=== PATIENT | male | born 1955 | race Caucasian/White ===

== ENCOUNTER → 2020-05-27 13:23 | Outpatient (CLI) | payer MEDICARE, SELFPAY ==
[2020-05-27 14:29] LABS: Basophils # 0.1 K/mm3 (0-0.2); Basophils % 0.9 % (0.1-2.0); Eosinophils # 0.3 K/mm3 (0.0-0.4); Eosinophils % 3.4 % (0.1-12.0); Hematocrit 46.3 % (42.0-52.0); Hemoglobin 15.7 g/dL (14.1-18.0); Lymphocytes # 1.9 K/mm3 (0.7-4.5); Lymphocytes % 25.3 % (10-50); Mean Corpuscular HGB Conc 33.8 g/dL (31.8-35.4); Mean Corpuscular Hemoglobin 28.5 pg (27.0-31.2); Mean Corpuscular Volume 84.3 fl (80-94); Mean Platelet Volume 7.5 fl (7.4-10.4); Monocytes # 0.4 K/mm3 (0.1-1.0); Monocytes % 4.9 % (1.7-9.3); Neutrophils % 65.5 % (37.0-80.0); Platelet Count 236 K/mm3 (142-424); Red Cell Distribution Width 13.9 % (11.5-17.5); White Blood Count 7.7 K/mm3 (4.8-10.8)
[2020-05-27 14:51] LABS: Chloride 102 mmol/L (98-107); Potassium 4.4 mmoL/L (3.5-5.1); Sodium 141 mmol/L (136-145)
[2020-05-27 14:54] LABS: Anion Gap 11.4 mEq/L (5-15); Blood Urea Nitrogen 10 mg/dl (9-20); Calcium 9.6 mg/dl (8.4-10.2); Carbon Dioxide 32 mmol/L (22.0-30.0); Estimated Glomerular Filt Rate 61 ml/min (>60); GFR (African American) 74 ML/MIN (>60); Glucose 94 mg/dl (74-100)
[2020-05-27 15:11] LABS: Coronavirus 19 IgG Antibody Positive (Negative); Coronavirus 19 IgM Antibody Negative (Negative)
== END ==
PROVIDERS: Visit Provider Urology
DX: Z01.818 Encounter for other preprocedural examination; Z20.822 Contact with and (suspected) exposure to COVID-19; R06.02 Shortness of breath; I70.213 Atherosclerosis of native arteries of extremities with intermittent claudication, bilateral legs; R60.0 Localized edema; Z72.0 Tobacco use
CPT/HCPCS: 36415; 80048; 85025; 86328

== ENCOUNTER 2020-05-29 08:57 | Day surgery (SDC) | payer MEDICARE, SELFPAY ==
[2020-05-29] VITALS (13 sets, daily range): BP systolic 109–157; BP diastolic 60–74; PULSE 65–79; RESP 12–18; O2SAT 95–99; BMI 28.3
--- NOTE | 2020-05-29 07:18 | IR_ITS ---
APPROVED REPORT Patient Location: Outpatient PROCEDURES Right radial arterial access Catheter placement in the left common iliac artery Selective left common iliac artery antegrade angiogram Catheter placement in the right external iliac artery Selective right external iliac artery antegrade angiogram Stent deployment to the right external iliac artery Catheter placement in the distal abdominal aorta Distal abdominal aortogram INDICATION Peripheral artery disease, [place] claudication class III, History of femorofemoral surgery, Right external iliac artery atherosclerotic plaque Informed consent was obtained prior to the procedure. COMPLICATIONS None Estimated Blood Loss: Less than 10 mls TECHNIQUE 1% lidocaine used anesthetize the right anterior aspect of the wrist. The right radial artery was accessed via the Salinger technique and a 6 Cook Islander hydrophilic sheath was placed in the right radial artery. Heparin verapamil and nitroglycerin were administered intra-arterially. A ANTUNEZ catheter was used to cannulate and accessed the transverse aorta and passed the wire into the descending aorta. Once the wire was in the descending aorta a PV multi curve was placed in the right external iliac artery and angiography was performed. The catheter was placed in the left common iliac artery and left common iliac artery angiography was performed. The catheter was placed back into the right common and external iliac artery and therapeutic heparin was administered giving a therapeutic ACT. A long advantage wire was used to traverse the stenosis in the right external iliac artery. The apparatus was removed with the wire in place and the sheath was removed with replacement of a 110 cm hydrophilic 6 [place] Islander sheath which landed into the right distal common iliac artery. An 8 mm x 37 mm EV 3 balloon mounted stent was deployed at 10 meme reducing the severe stenosis to 0%. Repeat angiography revealed wide patency with excellent inline flow to the right common femoral artery. Following this the catheter was pulled back to the distal abdominal aorta and distal abdominal aortography was performed. After achieving excellent angiographic results the apparatus was removed the sheath was removed and hemostasis was achieved using TR banding patient was transferred to the postop holding her stable condition ANGIOGRAPHIC RESULTS The distal abdominal aorta is calcified yet widely patent The left common iliac artery is proximally occluded The right common iliac artery has a stent in the proximal segment which is widely patent free of in-stent restenosis with excellent proximal distal transitioning. The right internal iliac artery is widely patent. The right external iliac artery has a 6 concentric 80% stenosis. The right common femoral artery is patent however at the junction of the femorofemoral graft and eccentric high-grade calcified stenosis is identified. The proximal right SFA is patent in the proximal segment however the mid and distal segment was not visualized. The right profunda femoris artery is widely patent The femorofemoral graft is widely patent IMPRESSION Peripheral artery disease as described above Successful stenting of the right external iliac artery severe disease reduced to 0% with 1 balloon mounted stent. This provided increased inflow to the both the right leg as well as the left leg given the femorofemoral graft Chronically occluded left common iliac artery Persistent severe eccentric calcified stenosis at the junction of the femorofemoral graft in the right common femoral artery PLAN 1. Dual antiplatelet therapy for 1 month and then can consider switching to Xarelto 2.5 twice daily plus asp
--- NOTE | 2020-05-29 09:02 | CA_ITS ---
APPROVED REPORT EXAM: Comprehensive 2D, Doppler, and color-flow Echocardiogram Instructional Support Services Director: Georgia Eddy RVT Ht: 5 ft 5 in Wt: 173lbs BSA: 1.86 BP: 132/68 mmHg Indications: SOA,CAD,SMOKER,EDEMA TDS-OVERLAYING LUNG 2D Dimensions LVOT 2.18 cm (M/F) 1.5-2.5 LA Volume 13.70 mL LA Volume Index 7.36 mL/m2 (M/F) 16-34 M-Mode Dimensions RVDd 2.36 cm (0.9-2.6) LA Diam 3.26 cm (1.9-4.0) LVDd 4.80 cm (3.5-5.7) Ao Diam 3.37 cm (2.0-3.7) LVDs 3.01 cm (3.5-5.7) IVSd 0.93 cm (0.6-1.1) PWd 0.61 cm (0.6-1.1) EF (Teich) 67.20% FS 37.30% EDV (Teich) 107.50 mL ESV (Teich) 35.30 mL LV Diastology E Decel Time 213.00 (160-240 msec) E/A Ratio 0.9 MED E' 7.20 (< 7 cm/sec) E'/MED E' Ratio 11.57 (>14) LAT E' 8.30 (<10 cm/sec) E/LAT E' Ratio 10.04 (>14) Mitral Valve MV E Max Aguila. 83.00 (40-130 cm/s) MV A Velocity 93.00 (40-130 cm/s) E/A Ratio 0.90 MV Decel. Time 213.00 (160-240 ms) MV PHT 62.00 ms Pulmonary Valve PV Peak Velocity 70.00 (50-150 cm/s) Left Ventricle Left atrium is mildly enlarged, left ventricle is normal size, there is mild concentric left ventricular hypertrophy, visually estimated ejection fraction 55% with no regional wall motion abnormality, grade 1 diastolic dysfunction seen without tissue Doppler evidence of raise left atrial pressure. Right Ventricle Right atrium and right ventricle are normal size and contractility. Aortic Valve Aortic valve is minimally thickened and fibrosed there is no aortic stenosis or aortic insufficiency. Mitral Valve Mitral valve is grossly normal, there is trace mitral regurgitation. Tricuspid Valve Tricuspid valve grossly normal, there is trace tricuspid regurgitation, tricuspid regurgitation jet velocity is inadequate for calculation of the right ventricular systolic pressure. Pulmonic Valve Pulmonic valve is poorly visualized. Great Vessels Aortic root is normal size. Pericardium No significant pericardial effusion noted. Conclusion 1. Normal left ventricular size, mild concentric left ventricular hypertrophy, visually estimated ejection fraction 55% with no regional wall motion abnormality, grade 1 diastolic dysfunction seen without tissue Doppler evidence of raise left atrial pressure. 2. Trace mitral and tricuspid regurgitation. 3. No significant pericardial effusion noted. Electronically signed by : Chi Brantley, 05/29/2020 16:57:22
[2020-05-29 12:10] LABS: CATHL Activated Clotting Time > 400 SEC (74-125)
--- NOTE | 2020-05-29 13:44 | HMH.PHACLD ---
Moshe West has received discharge medication counseling on the following medications: CONTINUED MEDICATIONS: PLAVIX, ASPIRIN NEW MEDICATIONS: LIPITOR ED/ARB AND BB NOT INDICATED FOR PERIPHERAL STENT
== END 2020-05-29 13:58 | disposition home or self-care (01) ==
LOC: CATHLAB 08:57
PROVIDERS: PCP Emergency Medicine; Visit Provider Internal Medicine
DX: I70.293 Other atherosclerosis of native arteries of extremities, bilateral legs (principal); I70.213 Atherosclerosis of native arteries of extremities with intermittent claudication, bilateral legs; R60.0 Localized edema; Z72.0 Tobacco use; I77.1 Stricture of artery; Z82.49 Family history of ischemic heart disease and other diseases of the circulatory system; Z95.820 Peripheral vascular angioplasty status with implants and grafts; I25.10 Atherosclerotic heart disease of native coronary artery without angina pectoris
CPT/HCPCS: 36247; 37221; 75710; 85347; 93306; 99152; 99153; C1725; C1769; C1876; J1644; Q9966

== ENCOUNTER → 2022-06-07 17:58 | Outpatient (CLI) | payer MEDICARE, SELFPAY ==
[2022-06-07 18:28] LABS: Alanine Aminotransferase 15 U/L (12-78); Albumin/Globulin Ratio 1.7 (1.1-1.8); Alkaline Phosphatase 124 U/L (38-126); Anion Gap 10.1 mEq/L (5-15); Aspartate Amino Transferase 23 U/L (17-59); Bilirubin,Total 0.5 mg/dl (0.2-1.3); Blood Urea Nitrogen 10 mg/dl (9-20); Calcium 8.8 mg/dl (8.4-10.2); Carbon Dioxide 31 mmol/L (22.0-30.0); Chloride 96 mmol/L (98-107); Chol/HDL Ratio 5.5 (1-3.5); Cholesterol 149 mg/dl (140-200); Estimated Glomerular Filt Rate 75 ml/min (>60); GFR (African American) 90 ML/MIN (>60); Globulin 2.4 g/dL (1.3-3.2); Glucose 82 mg/dl (74-100); HDL Cholesterol 27 mg/dl (40-60); Potassium 4.1 mmoL/L (3.5-5.1); Sodium 133 mmol/L (136-145); Total Protein,Serum 6.4 g/dl (6.3-8.2); Triglycerides 162 mg/dl (30-150); VLDL Cholesterol 32 mg/dL (0-40)
[2022-06-07 18:49] LABS: Basophils # 0.1 K/mm3 (0-0.2); Basophils % 0.8 % (0.1-2.0); Eosinophils # 0.2 K/mm3 (0.0-0.4); Eosinophils % 2.7 % (0.1-12.0); Hematocrit 44.2 % (42.0-52.0); Hemoglobin 14.1 g/dL (14.1-18.0); Lymphocytes # 2.2 K/mm3 (0.7-4.5); Lymphocytes % 26.5 % (10-50); Mean Corpuscular HGB Conc 31.9 g/dL (31.8-35.4); Mean Corpuscular Hemoglobin 26.4 pg (27.0-31.2); Mean Corpuscular Volume 82.8 fl (80-94); Mean Platelet Volume 7.4 fl (7.4-10.4); Monocytes # 0.5 K/mm3 (0.1-1.0); Monocytes % 6.1 % (1.7-9.3); Neutrophils # 5.3 K/mm3 (1.8-7.8); Neutrophils % 63.9 % (37.0-80.0); Platelet Count 245 K/mm3 (142-424); Red Blood Count 5.34 M/mm3 (4.60-6.20); Red Cell Distribution Width 15.4 % (11.5-17.5); White Blood Count 8.2 K/mm3 (4.8-10.8)
[2022-06-07 19:01] LABS: Prostate Specific Ag Screen 1.6 ng/ml (0.0-4.0)
== END ==
PROVIDERS: PCP Family Medicine; Visit Provider Family Medicine
DX: I73.9 Peripheral vascular disease, unspecified (principal); Z12.5 Encounter for screening for malignant neoplasm of prostate; E78.2 Mixed hyperlipidemia; Q24.5 Malformation of coronary vessels
CPT/HCPCS: 80053; 80061; 85025; G0103

== ENCOUNTER → 2022-07-14 07:51 | Outpatient (CLI) | payer MEDICARE, SELFPAY ==
--- NOTE | 2022-07-14 07:52 | CT_ITS ---
FINAL REPORT CLINICAL HISTORY: lung cancer screening, 1 ppd x 54 years FINDINGS: CT CHEST LOW DOSE SCREENING HISTORY: Screening exam for lung cancer. Current smoker, 54 pack year smoking history DOSE: CTDIvol: 2.90 mGy, DLP: 9847 mGy*cm COMPARISON: None . TECHNIQUE: Axial CT without IV contrast administration using low dose protocol FINDINGS: No acute lung disease is present . No pulmonary lesions are seen suspicious for neoplasm. There is evidence of old calcified granulomatous disease. A few patchy groundglass opacities are noted favored to be scarring or inflammatory nature. Chronic interstitial changes are seen. Bronchial wall thickening is present. No pleural or pericardial effusion is seen . No adenopathy or mass lesion is present . Numerous subcutaneous lesions are seen of the back. Small hiatal hernia is present with evidence of reflux disease. IMPRESSION: 1. No evidence of lung cancer 2. Nonspecific patchy groundglass opacities bilaterally in a symmetric fashion which could be due to chronic change or bronchopneumonia LUNG RADS CATEGORY 1 S, significant RECOMMENDATION: 12 month LDCT follow up Authenticated and ERN
== END ==
PROVIDERS: PCP Family Medicine; Visit Provider Family Medicine
DX: Z87.891 Personal history of nicotine dependence (principal); Z12.2 Encounter for screening for malignant neoplasm of respiratory organs
CPT/HCPCS: 71271

== ENCOUNTER → 2022-12-03 13:31 | Outpatient (CLI) | payer MEDICARE, SELFPAY | PROVIDERS: PCP Family Medicine; Visit Provider Family Medicine | DX: L98.9 Disorder of the skin and subcutaneous tissue, unspecified (principal) ==

== ENCOUNTER → 2023-03-04 13:28 | Outpatient (CLI) | payer MEDICARE, SELFPAY ==
--- NOTE | 2023-03-04 13:37 | XR_ITS ---
FINAL REPORT CLINICAL HISTORY: pneumonia, right basilar rales, diminished left ba FINDINGS: TWO-VIEW CHEST The heart size is normal. The mediastinum is normal. There are chronic changes in the infrahilar regions bilaterally. There is no pneumothorax. IMPRESSION: No acute cardiopulmonary process. Reviewed, Interpreted and Dictated by Danny Bloom MD Transcribed by Erin Murillo Authenticated and . [facility] [place]
== END ==
LOC: RAD 13:29
PROVIDERS: PCP Family Medicine; Visit Provider Nurse Practitioner
DX: J18.9 Pneumonia, unspecified organism (principal); J44.1 Chronic obstructive pulmonary disease with (acute) exacerbation
CPT/HCPCS: 71046

== ENCOUNTER 2023-12-08 10:49 | Day surgery (SDC) | payer MEDICARE, SELFPAY ==
[2023-12-08] VITALS (10 sets, daily range): BP systolic 107–149; BP diastolic 59–100; PULSE 55–73; RESP 18–20; O2SAT 94–100; BMI 27.6
--- NOTE | 2023-12-08 07:19 | IR_ITS ---
APPROVED REPORT Patient Location: Outpatient PROCEDURES Right radial arterial access Catheter placement in the right external iliac artery with unilateral runoff to the right foot Catheter placed in the distal abdominal aorta Distal abdominal aortogram Bare-metal stent deployment to the ostium of the right common iliac artery Intravascular lithotripsy to the right common femoral artery Intravascular lithotripsy to the right profunda femoris INDICATION Peripheral artery disease, Occluded left common and external iliac artery, History of femorofemoral bypass, [place] claudication class III right leg, Extensive calcification of the right common femoral artery, Extensive calcification of the right profunda femoris artery, Abnormal RAMON, Informed consent was obtained prior to the procedure. COMPLICATIONS none Estimated Blood Loss: less than 10ml TECHNIQUE 1% lidocaine used to anesthetize the right anterior aspect of the right wrist. The right radial artery was accessed via the central technique and an arterial cocktail using 5000U heparin, 2.5 mg verapamil, 1mg lidocaine and 800mcg nitroglycerin into the right radial sheath intra-arterially. A PV multi curve catheter was then placed into the right common iliac artery and then advanced into the right external iliac artery where antegrade angiography with unilateral runoff to the right foot was performed. Following this the catheter was pulled back to the distal abdominal aorta were distal abdominal aortography was performed. The 6 Cypriot sheath was then exchanged for a hydrophilic 119 cm 6 Cypriot sheath. Under fluoroscopic guidance the sheath was advanced to the distal abdominal aorta. Therapeutic heparin was administered giving a therapeutic ACT and a 300 cm Choice PT extra-support wire was placed in the right external iliac artery. An 8 mm x 37 mm balloon mounted bare-metal stent was deployed initially at 14 meme the balloon was brought back and then deployed at 16 meme to post dilate. Repeat angiography demonstrated severe calcification at the anastomosis of the right common femoral artery and the femorofemoral graft. This calcification extended into a large profunda femoris artery while the right superficial femoral artery was proximally occluded. At this point a 6 mm x 40 mm intravascular lithotripsy balloon was advanced into the right common femoral artery straddling the femorofemoral graft and extending into the proximal profunda femoris artery. The balloon was deployed at 4 and then 6 meme and a total of 300 intravascular lithotripsy shockwaves were administered. Excellent angiograph results were obtained at the end the procedure the apparatus was removed the sheath was removed and hemostasis was achieved using TR banding patient was transferred to the postop putting in stable addition ANGIOGRAPHIC RESULTS Distal abdominal aorta is patent. Left common iliac artery is proximally occluded and does not reconstitute until the common femoral artery from the femorofemoral graft. The right common iliac artery has an ostial 50% stenosis which creates a 40 mm Means stenotic gradient. Following the stenosis there is a stent in the proximal to mid common iliac artery which is widely patent. There is then a gap of normal blood vessel followed by an additional stent which has mild to moderate concentric in-stent restenosis. The right common femoral artery is widely patent. There is evidence of a femorofemoral graft which is anastomosed had a heavily calcified severely stenotic right common femoral artery which extends toward the right profunda femoris. The right superficial femoral artery is proximally occluded. There is reconstitution at the right popliteal artery at Randy's canal through dense collateralization from the large profunda femoris artery. The right popliteal artery is then occluded at the pregeniculate level and then sends dense collaterals distally where the posterior tibialis artery reconstitutes at mid calf and then supplies the right foot. Motion artifact limited evaluation of the right anterior tibialis artery The left lower extremity was not angiographically evaluated however the femorofemoral graft was patent IMPRESSION Chronically occluded left common internal and external iliac artery Severe stenosis in the ostial segment of the right common iliac artery producing a 40 mm Means stenotic gradient which was successfully stented with 1 bare-metal balloon mounted stent reducing the lesion to 0% Severe calcification of the right common femoral artery preceding a large profunda femoris artery Chronically occluded right superficial femoral artery Short segment of patent right popliteal artery supplied by collaterals from the profunda femoris artery which then is abruptly occluded and then sends pregeniculate collaterals into the right posterior tibialis artery and peroneal artery with two-vessel runoff into the right foot Successful intravascular lithotripsy to the right common femoral artery extending into the right profunda femoris artery PLAN 1. Dual antiplatelet therapy is reasonable however long-term patient should be on Xarelto 2.5 twice daily and aspirin 81 mg daily 2. LDL less than 55 to achieve that high intensity statin 3. Avoidance of tobacco products 4. Risk factor modification 5. Physical therapy and peripheral artery disease rehabilitation Electronically signed by : Reji Carlos MD 12/08/2023 14:21:18
[2023-12-08 11:13] LABS: Basophils # 0.1 K/mm3 (0-0.2); Basophils % 0.6 % (0.1-2.0); Eosinophils # 0.2 K/mm3 (0.0-0.4); Eosinophils % 2.5 % (0.1-12.0); Hematocrit 40.8 % (42.0-52.0); Hemoglobin 13.4 g/dL (14.1-18.0); Lymphocytes # 1.8 K/mm3 (0.7-4.5); Lymphocytes % 19.6 % (10-50); Mean Corpuscular HGB Conc 32.8 g/dL (31.8-35.4); Mean Corpuscular Volume 82.4 fl (80-94); Mean Platelet Volume 7.1 fl (7.4-10.4); Monocytes # 0.4 K/mm3 (0.1-1.0); Monocytes % 4.3 % (1.7-9.3); Neutrophils # 6.7 K/mm3 (1.8-7.8); Neutrophils % 72.9 % (37.0-80.0); Platelet Count 213 K/mm3 (142-424); Red Blood Count 4.96 M/mm3 (4.60-6.20); Red Cell Distribution Width 16.9 % (11.5-17.5); White Blood Count 9.2 K/mm3 (4.8-10.8)
[2023-12-08 11:29] LABS: Chloride 91 mmol/L (98-107); Sodium 131 mmol/L (136-145)
[2023-12-08 11:32] LABS: Anion Gap 8.9 mEq/L (5-15); Blood Urea Nitrogen 7 mg/dl (9-20); Calcium 9.4 mg/dl (8.4-10.2); Carbon Dioxide 34 mmol/L (22.0-30.0); Creatinine Clearance Estimated 68 mL/min (50-200); Estimated Glomerular Filt Rate 67 ml/min (>60); GFR (African American) 81 ML/MIN (>60); Glucose 100 mg/dl (74-100)
[2023-12-08 11:34] LABS: Potassium 2.9 mmoL/L (3.5-5.1)
[2023-12-08] MEDS: HEPARIN 1,000 UNITS/ML 10ML VIAL (CATH LAB) 10000 UNIT IV ×2 (11:43→12:39)
[2023-12-08] MEDS: VERAPAMIL 2.5MG/ML 2ML VIAL 2.5 MG IV (11:43)
[2023-12-08] MEDS: LIDOCAINE 1% 10ML MDV 20 ML IJ (11:43)
[2023-12-08] MEDS: diphenhydrAMINE 50MG/ML VIAL 50 MG IV (11:43)
[2023-12-08] MEDS: 0.9 % SODIUM CHLORIDE 500 ML 25 ML IV (11:44)
[2023-12-08] MEDS: HEPARIN 1,000 UNITS/500ML NS (CATH LAB) 3000 UNIT IV (11:45)
[2023-12-08] MEDS: NITROGLYCERIN 800MCG/8ML SYR (CATH LAB) 800 MCG IA (11:45)
[2023-12-08] MEDS: MIDAZOLAM HCL 1MG/1ML 5ML VIAL 1 MG IV (12:39)
[2023-12-08] MEDS: FENTANYL 100MCG/2ML VIAL 50 MCG IV (12:39)
[2023-12-08] MEDS: PROPOFOL 10MG/ML 20ML VIAL 100 MG IV (13:00)
[2023-12-08] MEDS: POTASSIUM CHLORIDE 20MEQ TAB 40 MEQ PO (14:18)
[2023-12-08 14:33] LABS: CATHL Activated Clotting Time > 400 SEC (74-125)
[2023-12-08] MEDS: IOHEXOL-240 100ML BOTTLE 230 ML IV (16:04)
[2023-12-08 16:08] LABS: CATHL Activated Clotting Time > 400 SEC (74-125)
== END 2023-12-08 15:44 | disposition home or self-care (01) ==
PROVIDERS: PCP Family Medicine; Visit Provider Internal Medicine
DX: I70.201 Unspecified atherosclerosis of native arteries of extremities, right leg (principal); Q24.5 Malformation of coronary vessels; R53.83 Other fatigue; I10 Essential (primary) hypertension; F17.210 Nicotine dependence, cigarettes, uncomplicated; I77.1 Stricture of artery; I73.9 Peripheral vascular disease, unspecified; Z95.828 Presence of other vascular implants and grafts
CPT/HCPCS: 80048; 85025; 85347; 99152; 99153; C1725; C1769; C1876; C9765; J1200; J1644; J2250; J3010; Q9966

== ENCOUNTER 2024-12-28 10:33 | Outpatient (CLI) | payer MEDICARE, SELFPAY ==
[2024-12-28 20:47] LABS: Hematocrit 39.5 % (42.0-52.0); Hemoglobin 12.7 g/dL (14.1-18.0); Immature Granulocytes % 0.4 %; Mean Corpuscular HGB Conc 32.2 g/dL (31.8-35.4); Mean Corpuscular Hemoglobin 25.6 pg (27.0-31.2); Mean Corpuscular Volume 79.5 fl (80-94); Nucleated Red Blood Cells % 0 %; Platelet Count 224 K/mm3 (142-424); Red Blood Count 4.97 M/mm3 (4.60-6.20); Red Cell Distribution Width-SD 45.0 fL; White Blood Count 9.2 K/mm3 (4.8-10.8)
[2024-12-28 21:40] LABS: Alanine Aminotransferase 16 U/L (12-78); Albumin Level 3.8 g/dl (3.5-5.0); Albumin/Globulin Ratio 1.3 (1.1-1.8); Alkaline Phosphatase 183 U/L (38-126); Anion Gap 11.4 mEq/L (5-15); Aspartate Amino Transferase 19 U/L (17-59); Bilirubin,Total 0.7 mg/dl (0.2-1.3); Blood Urea Nitrogen 8 mg/dl (9-20); Calcium 9.1 mg/dl (8.4-10.2); Carbon Dioxide 29 mmol/L (22.0-30.0); Chloride 98 mmol/L (98-107); Cholesterol 90 mg/dl (140-200); Creatinine,Serum 1.10 mg/dl (0.66-1.25); Estimated Glomerular Filt Rate 66 ml/min (>60); GFR (African American) 80 ML/MIN (>60); Globulin 3.0 g/dL (1.3-3.2); Glucose 89 mg/dl (74-100); Potassium 4.4 mmoL/L (3.5-5.1); Sodium 134 mmol/L (136-145); Total Protein,Serum 6.8 g/dl (6.3-8.2); Triglycerides 98 mg/dl (30-150)
[2024-12-28 22:23] LABS: HDL Cholesterol 27 mg/dl (40-60)
[2024-12-28 22:31] LABS: Hepatitis C Ab Qual. W/ RFX NEGATIVE (Negative)
--- OUTSIDE RECORDS SUMMARY | 2024-12-31 10:45 | XMS_ITS | Clinical Summary ---
Author Organization [facility] Address [address] [place] [address] Care Team Providers Care Production Painter Name Role Phone Pau Manuel MD Primary Care Provider [phone] Allergies No known active allergies Medications HYDROcodone-acet aminophen (NORCO) 5-325 MG per tablet Take 1 tablet by mouth 3 (Three) Times a Day. Active aspirin EC 325 MG EC tablet Take 1 tablet by mouth Daily. 90 tablet 3 08/28/2017 Active clopidogrel (PLAVIX) 75 MG tablet Take 1 tablet by mouth Daily. 30 tablet 3 08/28/2017 Active nicotine (NICODERM CQ) 21 MG/24HR patch Place 1 patch on the skin Daily. 14 patch 08/28/2017 Active Active Problems Problem Noted Date Diagnosed Date Peripheral arterial disease 08/23/2017 Overview (08/23/2017): Added automatically from request for surgery [id number] Tobacco abuse 08/23/2017 Resolved Problems Problem Noted Date Diagnosed Date Resolved Date Arterial insufficiency of lower extremity 08/23/2017 08/28/2017 Overview (08/24/2017): Added automatically from request for surgery [id number] Family History Medical History Relation Name Comments Peripheral vascular disease Father Diabetes Mother Relation Name Status Comments Father Mother Alive Social History Tobacco Use Types Packs/Day Years Used Date Smoking Tobacco: Every Day Cigarettes 0.3 48 Smokeless Tobacco: Never Comments:Currently 1 Cigaret te Daily, as much as 3 PPD at one time Alcohol Use Standard Drinks/Week Comments No 0 (1 standard drink = 0.6 oz pur e alcohol) Abuse Screen Answer Date Recorded Unsafe at Home or Work/School Not on file Feels Threatened by Someone? Not on file 02/2023 Does Anyone Keep You from Co ntacting Others or Doint Things Outside the Home? Not on file 12/16/2022 Physical Sign of Abuse Present Not on file 1 Housing Stability Answer Date Recorded Current Living Arrangements Not on file 12/05 Potentially Unsafe Housing Conditions Not on reyes e 12/16/2022 Family and Community Support Answer Glenn e Recorded Help with Day-to-Day Activities Not on file 12/16/2022 Lonely or Isolated Not on file 12/16/2022 Employment Answer Date Recorded Do you want help finding or keeping work or a anjel b? Not on file 12/16/2022 Disabilities Answer Date Recorded Concentrating, Remembering, or Making Decisions Difficulty Not on file 12/16/2022 Doing Errands Independently Difficulty Not on fi le 12/16/2022 Education Answer Date Recorded Help with school or training? 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 Not on file Not on file Last Filed Vital Signs Vital Sign Reading Time Taken Comments Blood Pressure 142/70 11/21/2017 9:44 AM EDT Pulse 78 11/21/2017 9:44 AM EDT Temperature 36.7 C (98 F) 11/21/2017 9:44 AM EDT Respiratory Rate 18 08/28/2017 4:20 AM EDT Oxygen Saturation 98% 11/21/2017 9:44 AM EDT Inhaled Oxygen Concentration - - Weight 73.9 kg (163 lb) 11/21/2017 9:44 AM EDT Height 165.1 cm (5' 5 ) 11/21/2017 9:44 AM EDT Body Mass Index 27.12 11/21/2017 9:44 AM EDT Plan of Treatment Health Maintenance Due Date Last Done Comments TDAP/TD VACCINES (1 - Tdap) 1974 COLOGUARD 2000 COLON CANCER SCREENING 5 YEAR SIGMOIDOSCOPY 2000 COLONOSCOPY [address] S[address]ENING [address] COLONOGRAPHY 2000 FECAL OCCULT BLOOD TEST 2000 FIT Testing (1 year) 2000 Pneumococcal Vaccine 50+ (1 of 1 - PCV) 2005 ZOSTER VACCINE (1 of 2) 2005 ANNUAL PHYSICAL 09/12/2017 HEPATITIS C SCREENING 09/12/2017 INFLUENZA VACCINE 10/05/2024 COVID-19 Vaccine ( season) 2024 AAA SCREEN ONCE Completed 11/25/2017 Medical Devices Implanted Type Area Metal Flow Coordinator Device Identifier Shelf Expiration Date Model / Serial / Lot Grhang Vasc Propat Thnstrch [id number] - [id number] Implanted:Qty: 1 on 08/25/2017 by Cristhian Mandujano MD at [facility] Implant Right: Groin [employer] 04/24/2021 [id number] / / Stent Beau Visipro .035 7f 37mm 80cm - [id number] Implanted:Qty: 1 on 08/24/2017 by Cristhian Mandujano MD at [facility] Stent EV3 A [employer] [id number] / / Procedures Procedure Name Priority Date/Time Associated Diagnosis Comments CT ANGIO ABDOMINAL AORTA BILAT ILIOFEM RUNOFF Routine 11/25/2017 1:23 PM EDT PAD (peripheral artery disease) from Last 3 Months or Most Recently Relevant to Health Maintenance Results * CT Angio Abdominal Aorta Bilateral Iliofem Runoff With & Without Contrast (11/25/2017 1:23 PM EDT) Anatomical Region Laterality Modality Vascular, Chest, Abdomen N/A Compute d Tomography 11/25/2017 4:10 PM EDT Impressions 11/25/2017 4:16 PM EDT 1. Patent fem-fem bypass. Patent right common iliac stent. Severe narrowing right external iliac artery. 2. Severe bilateral SFA atherosclerosis with spurious occlusion along the vessels. 3. Three-vessel runoff to the feet. E: 11/25/2017 This report was finalized on 11/25/2017 4:16 PM by Everett Dunbar. Narrative 11/25/2017 4:16 PM EDT EXAMINATION: CT ANGIO ABDOMINAL AORTA AND BILATERAL ILIOFEMORAL RUNOFF W WO CONTRAST-11/25/2017: INDICATION: PAD; I73.9-Peripheral vascular disease, unspecified. TECHNIQUE: Axial CT data of the abdomen, pelvis and the lower extremities were acquired helically before and following IV contrast per CTA with runoff protocol. MPR, MIP and 3-D volume rendered images were generated and reviewed. The radiation dose reduction device was turned on for each scan per the ALARA (As Low as Reasonably Achievable) protocol. COMPARISONS: Catheter aortogram with bilateral lower extremity runoff 08/24/2017. FINDINGS: Vascular: AORTA AND VISCERAL BRANCHES: Irregular atherosclerosis of the patent aorta; aorta is normal in caliber. No evidence of dissection or aneurysmal dilatation. Celiac axis is patent. Variant hepatic arterial supply with the left hepatic artery replaced to the left gastric. Patent but mildly narrowed SMA. Single main right renal artery; its origin is actually inferior to the KELLY takeoff; KELLY patent. There is an accessory right renal artery arising from the right common iliac artery just prior to its bifurcation. Patent single left renal artery. RIGHT LOWER EXTREMITY: Patent common iliac artery with stent in place. Patent internal iliac artery. Severe narrowing with near occlusion of the proximal right external iliac artery. Severe narrowing of the distal common femoral artery. Patent fem-fem bypass. The right superficial femoral artery is mostly occluded but there are small muscular collaterals reconstituting the popliteal. There is good perfusion of the right foot with 3-vessel runoff identified. LEFT LOWER EXTREMITY: Left common and external iliac arteries are occluded as is the common femoral artery. The common femoral artery is reconstituted by the fem-fem bypass just proximal to its bifurcation. The [place] femoral artery is essentially occluded in its entirety. Bi-geniculate collaterals reconstitute the popliteal and there is 3-vessel runoff to the left foot. Nonvascular: Calcified granuloma middle lobe. Cholelithiasis. Ptotic malrotated right kidney. Procedure Note Everett Dunbar MD - 11/25/2017 EXAMINATION: CT ANGIO ABDOMINAL AORTA AND BILATERAL ILIOFEMORAL RUNOFF W WO CONTRAST-11/25/2017: INDICATION: PAD; I73.9-Peripheral vascular disease, unspecified. TECHNIQUE: Axial CT data of the abdomen, pelvis and the lower extremities were acquired helically before and following IV contrast per CTA with runoff protocol. MPR, MIP and 3-D volume rendered images were generated and reviewed. The radiation dose reduction device was turned on for each scan per the ALARA (As Low as Reasonably Achievable) protocol. COMPARISONS: Catheter aortogram with bilateral lower extremity runoff 08/24/2017. FINDINGS: Vascular: AORTA AND VISCERAL BRANCHES: Irregular atherosclerosis of the patent aorta; aorta is normal in caliber. No evidence of dissection or aneurysmal dilatation. Celiac axis is patent. Variant hepatic arterial supply with the left hepatic artery replaced to the left gastric. Patent but mildly narrowed SMA. Single main right renal artery; its origin is actually inferior to the KELLY takeoff; KELLY patent. There is an accessory right renal artery arising from the right common iliac artery just prior to its bifurcation. Patent single left renal artery. RIGHT LOWER EXTREMITY: Patent common iliac artery with stent in place. Patent internal iliac artery. Severe narrowing with near occlusion of the proximal right external iliac artery. Severe narrowing of the distal common femoral artery. Patent fem-fem bypass. The right superficial femoral artery is mostly occluded but there are small muscular collaterals reconstituting the popliteal. There is good perfusion of the right foot with 3-vessel runoff identified. LEFT LOWER EXTREMITY: Left common and external iliac arteries are occluded as is the common femoral artery. The common femoral artery is reconstituted by the fem-fem bypass just proximal to its bifurcation. The [place] femoral artery is essentially occluded in its entirety. Bi-geniculate collaterals reconstitute the popliteal and there is 3-vessel runoff to the left foot. Nonvascular: Calcified granuloma middle lobe. Cholelithiasis. Ptotic malrotated right kidney. IMPRESSION: 1. Patent fem-fem bypass. Patent right common iliac stent. Severe narrowing right external iliac artery. 2. Severe bilateral SFA atherosclerosis with spurious occlusion along the vessels. 3. Three-vessel runoff to the feet. E: 11/25/2017 This report was finalized on 11/25/2017 4:16 PM by Everett Dunbar. Ranjeet SURESH IMG CT ORDERABLES Final Result from Last 3 Months or Most Recently Relevant to Health Maintenance Insurance [facility] Directives * CPR (Attempt to Resuscitate) (Latest Code Status on File) Date Activated Date Inactivated Comments 08/23/2017 10:14 PM 08/28/2017 2:06 PM Question Answer Comments Code Status (Patient has no pulse and is not breathing): CPR (Attempt to Resuscitate) Medical Interventions (Patie nt has pulse or is breathing): Full Level Of Support Discussed With: Patient Care Teams Production Painter Relationship Specialty Start Date End Date Pau Manuel MD [address] [address] PCP - General Family Medicine 08/23/17
== END 2024-12-28 23:59 ==
LOC: LAB.DROPOF 12-31 10:33
PROVIDERS: PCP Family Medicine; Visit Provider Family Medicine
DX: E78.2 Mixed hyperlipidemia (principal); Z12.5 Encounter for screening for malignant neoplasm of prostate; J43.9 Emphysema, unspecified; I51.89 Other ill-defined heart diseases; Z11.59 Encounter for screening for other viral diseases
CPT/HCPCS: 80053; 80061; 85025; 86803; 87389; G0103